=== PATIENT | female | born 1995 ===

== ENCOUNTER 2016-12-09 04:42 | Emergency (ER) | payer OTHER ==
[2016-12-09] MEDS ORDERED: DiphenhydrAMINE 50 mg/ml Inj IVP STA (05:10)
[2016-12-09] MEDS ORDERED: Sodium Chloride 0.9% 500 ML IV STA (05:11)
[2016-12-09] MEDS ORDERED: Sodium Chloride 0.9% 1,000 ML ONE (05:11)
--- NOTE | 2016-12-09 05:15 | C.PDOC ---
History Of Present Illness 21 y/o female, with history of migraines, presents to ED with complaint of left sided frontal headache, described as periorbital pain, with associated photophobia. Patient denies neck pain, nausea, or vomiting. Patient reports taking Advil 3 hours prior to arrival w/o relief. Time Seen by Provider: 12/09/16 05:05 Chief Complaint (Nursing): Headache History Per: Patient History/Exam Limitations: no limitations Onset/Duration Of Symptoms: Hrs Current Symptoms Are (Timing): Still Present Quality: "Pain" Associated Symptoms: Photophobia. denies: Blurred Vision, Nausea, Vomiting, Extremity Weakness Recent travel outside of the [place]: No Past Medical History Reviewed: Historical Data, Nursing Documentation, Vital Signs Vital Signs: Last Vital Signs Temp 97.5 F L 12/09/16 04:47 Pulse 93 H 12/09/16 04:47 Resp 20 12/09/16 04:47 BP 107/72 12/09/16 04:47 Pulse Ox 100 12/09/16 05:15 - Medical History PMH: Migraine Family History: States: Unknown Family Hx - Social History Hx Tobacco Use: Yes Hx Alcohol Use: No Hx Substance Use: No - Immunization History Hx Influenza Vaccination: No Review Of Systems Except As Marked, All Systems Reviewed And Found Negative. Constitutional: Negative for: Fever, Chills Gastrointestinal: Negative for: Nausea, Vomiting Skin: Negative for: Rash Neurological: Positive for: Headache. Negative for: Weakness, Numbness, Dizziness Physical Exam - Physical Exam Appears: Non-toxic, No Acute Distress Skin: Normal Color, Warm, Dry Head: Atraumatic, Normacephalic Eye(s): bilateral: Normal Inspection, PERRL, EOMI Ear(s): Bilateral: Normal Nose: Normal Oral Mucosa: Moist Neck: No Midline Cervical Tenderness, No Paracervical Tenderness, No Step Off Deformity, Supple Chest: Symmetrical Cardiovascular: Rhythm Regular Respiratory: Normal Breath Sounds, No Rales, No Rhonchi, No Wheezing Gastrointestinal/Abdominal: Soft, No Tenderness Back: Normal Inspection Extremity: Normal ROM, Capillary Refill (< 2 sec. ) Neurological/Psych: Oriented x3, Normal Speech, Normal Cognition, Normal Cranial Nerves Gait: Steady ED Course And Treatment O2 Sat by Pulse Oximetry: 100 (RA) Pulse Ox Interpretation: Normal Progress Note: Treated with Toradol, Reglan, Benadryl, IVFs. On reassessment, patient is resting comfortably, and is in no acute distress. Patient reports improvement of headache. Patient instructed to follow up with clinic/PMD within 1-2 days. 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 - Scribe Statement The provider has reviewed the documentation as recorded by the Scribe Trevor Escoto Provider Scribe Attestation: All medical record entries made by the Scribe were at my direction and personally dictated by me. I have reviewed the chart and agree that the record accurately reflects my personal performance of the history, physical exam, medical decision making, and the department course for this patient. I have also personally directed, reviewed, and agree with the discharge instructions and disposition.
[2016-12-09] MEDS ORDERED: DiphenhydrAMINE 50 mg/ml Inj ONE (05:26)
[2016-12-09 06:25] VITALS: BP 125/71; PULSE 75; RESP 18; TEMP 98.2; O2SAT 99
== END 2016-12-09 06:21 | disposition home or self-care (01) ==
LOC: C.ER 04:42
DX: G43.909 Migraine, unspecified, not intractable, without status migrainosus (principal)
CPT/HCPCS: 96374; 96375; 99284; J1200; J1885; J2765; J7040